=== PATIENT | female | born 1995 | race Hispanic/Latino ===

== ENCOUNTER 2017-05-20 04:50 | Inpatient (IN) | payer OTHER ==
[2017-05-20] MEDS ORDERED: PHENERGAN PO PRN ×2 (05:16→05:57)
[2017-05-20] MEDS ORDERED: BRETHINE IVP PRN (05:16)
[2017-05-20] MEDS ORDERED: ZOFRAN IV PRN ×2 (05:16→05:57)
[2017-05-20] MEDS ORDERED: NARCAN 0.4 MG/1 ML IV PRN (05:16)
[2017-05-20] MEDS ORDERED: STADOL IV PRN (05:16)
[2017-05-20] MEDS ORDERED: ePHEDrine SULFATE IV PRN (05:16)
[2017-05-20] MEDS ORDERED: BRETHINE SUB-Q PRN (05:16)
[2017-05-20] MEDS ORDERED: SUBLIMAZE IV PRN (05:16)
[2017-05-20] MEDS ORDERED: POLYCILLIN/NS 2 GM/100 ML 2 GM/100 ML BAG IV ONE ×2 (05:16→05:24)
[2017-05-20] MEDS ORDERED: XYLOCAINE 2% INFILTRATI ONE (05:16)
[2017-05-20] MEDS ORDERED: MINERAL OIL PO PRN (05:16)
--- NOTE | 2017-05-20 05:19 | History and Physical Report ---
History of Present Illness Date of examination: 05/20/17 Date of admission: 05/20/17 05:01 Chief complaint: Labor History of present illness: Pt is a 22yo WF EDC 05/27/17; EGA 39 0/7 weeks presents to L&D complaining of RUC's q 2-3 mins. She received care at [facility] initially at 18 weeks then returned at 34 weeks. course has been unremarkable, and records are available. GBS is unknown. Past History Past Medical History: no pertinent history Past Surgical History: no surgical history Family/Genetic History: none Social history: no significant social history, - Obstetrical History Expected Date of Delivery: 05/27/17 Actual Gestation: 39 Week(s) 0 Day(s) Medications and Allergies Allergies Allergy/AdvReac Type Severity Reaction Status Date / Time No Known Drug Allergies Allergy Unknown Verified 05/20/17 05:22 Review of Systems All systems: negative - Physical Exam Breasts: Positive: deferred Cardiovascular: Regular rate Lungs: Positive: Clear to auscultation Abdomen: Positive: normal appearance Genitourinary (Female): Positive: normal external genitalia Vagina: Positive: normal moisture Uterus: Positive: enlarged - Obstetrical FHR: category 1 Uterine Contraction Monitor Mode: External Cervical Dilatation: 6 Cervical Effacement Percentage: 80 station: -2 Uterine Contraction Pattern: Regular Uterine Tone Measurement Phase: Contraction Uterine Contraction Intensity: Moderate Results Result Diagrams: 05/20/17 05:15 All other labs normal. Assessment and Plan - Patient Problems (1) 39 weeks gestation of Onset Date: 05/20/17 Current Visit: Yes Status: Acute Plan to address problem: A: IUP @ 39 0/7 weeks in labor Unknown GBS P: Admit to L&D for expectant vaginal delivery IV Ampicillin
--- NOTE | 2017-05-20 05:48 | Procedure Note ---
OB Delivery Note - Delivery Date of Delivery: 05/20/17 Surgeon: PRETTY VÁZQUEZ Estimated blood loss: 100cc - Vaginal Delivery presentation: vertex Delivery position: OA Intrapartum events: precipitous labor- <3hr Delivery induction: none Delivery augmentation: rupture of membranes Delivery monitor: external FHT, external uterine Route of delivery: Delivery placenta: spontaneous Delivery cord: 3 umbilical vessels Episiotomy: none Delivery laceration: 1st degree (left labial) Delivery repair: vicryl Anesthesia: none Delivery comments: delivered OA and placed on Mom's chest for [id number] bonding and delayed cord clamping - A at 1 minute: 8 at 5 minutes: 9 Infant Gender: Female ([id number])
[2017-05-20 05:49] LABS: Hematocrit 39.6 % (30.3-42.9); Hemoglobin 13.6 gm/dl (10.1-14.3); Mean Corpuscular HGB Conc 34 % (30-34); Mean Corpuscular Hemoglobin 30 pg (28-32); Mean Corpuscular Volume 89 fl (79-97); Platelet Count 298 K/mm3 (140-440); Red Blood Count 4.46 M/mm3 (3.65-5.03); Red Cell Distribution Width 14.4 % (13.2-15.2); White Blood Count 10.4 K/mm3 (4.5-11.0)
[2017-05-20] MEDS ORDERED: DULCOLAX PR PRN (05:57)
[2017-05-20] MEDS ORDERED: MILK OF MAGNESIA PO PRN (05:57)
[2017-05-20] MEDS ORDERED: TYLENOL PO PRN (05:57)
[2017-05-20] MEDS ORDERED: BENADRYL PO PRN (05:57)
[2017-05-20] MEDS ORDERED: LANSINOH TP PRN (05:57)
[2017-05-20] MEDS ORDERED: PHENERGAN PR PRN (05:57)
[2017-05-20] MEDS ORDERED: SODIUM CHLORIDE FLUSH SYRINGE 10 ML IV NR (06:00)
[2017-05-20] MEDS ORDERED: LACTATED RINGERS 1,000 ML IV SCH (06:00)
[2017-05-20] MEDS ORDERED: PITOCin/NS 20 UNIT/1000ML DRIP 20 UNITS/1,000 ML BAG IV SCH ×2 (06:00)
[2017-05-20] MEDS ORDERED: PITOCin/NS 30 UNIT/500ML 30 UNITS/500 ML BAG IV SCH (06:00)
[2017-05-20] MEDS: NORCO 5/325 PO PRN ×2 (08:14→21:20)
[2017-05-20] MEDS: TUCKS PAD TP PRN (08:23)
[2017-05-20] MEDS ORDERED: POLYCILLIN/NS 1 GM/50 ML 1 GM/50 ML BAG IV SCH (09:18)
[2017-05-20] MEDS: COLACE PO SCH ×2 (10:32→21:21)
[2017-05-20] MEDS: FEOSOL PO SCH ×2 (10:32→21:21)
[2017-05-20] MEDS: PRENATAL VITAMIN PO SCH (10:32)
[2017-05-20] MEDS: MOTRIN PO SCH ×3 (12:05→23:46)
[2017-05-20 19:45] LABS: Hematocrit 37.3 % (30.3-42.9); Hemoglobin 12.8 gm/dl (10.1-14.3)
[2017-05-21] MEDS ORDERED: M-M-R II VACCINE SUB-Q ONE (05:57)
[2017-05-21] MEDS ORDERED: BOOSTRIX IM ONE (06:00)
[2017-05-21] MEDS: MOTRIN PO SCH ×4 (06:04→23:55)
--- NOTE | 2017-05-21 09:02 | Progress Note ---
Assessment and Plan - Patient Problems (1) 39 weeks gestation of Onset Date: 05/20/17 Current Visit: Yes Status: Resolved (2) (normal spontaneous vaginal delivery) Onset Date: 05/21/17 Current Visit: Yes Status: Resolved Plan to address problem: A: S/P - PPD #1 Doing well P: May go home tomorrow Subjective - Subjective Date of service: 05/21/17 Principal diagnosis: s/p - PPD #1 Interval history: Pt is feeling well without complaints. Bleeding improved. Patient reports: appetite normal, voiding normally, pain well controlled, flatus , ambulating normally : doing well, nursing well Objective - Vital Signs Latest vital signs: Vital Signs Temp Pulse Resp BP BP Pulse Ox 05/21/17 04:20 98.0 F 52 L 18 104/55 05/21/17 00:00 98.2 F 59 L 18 98/42 05/20/17 20:10 98.6 F 61 18 104/50 05/20/17 17:17 97.8 F 59 L 18 105/66 99 Intake and Output 05/20/17 05/21/17 05/21/17 22:59 06:59 14:59 Intake Total 480 240 Balance 480 240 Intake: Oral 480 240 Other: Total, Intake Amount 480 240 # Voids Void 1 1 - Exam Breasts: Present: deferred Cardiovascular: Present: Regular rate Lungs: Present: Clear to auscultation Abdomen: Present: normal appearance Uterus: Present: normal, firm, fundal height below umbilicus Extremities: Present: normal - Labs Labs: Laboratory Tests 05/20/17 05/20/17 05/20/17 05:15 05:15 19:31 WBC 10.4 RBC 4.46 Hgb 13.6 12.8 Hct 39.6 37.3 MCV 89 MCH 30 MCHC 34 RDW 14.4 Plt Count 298 Blood Type B POSITIVE Antibody Screen TNR ALESHIA Antibody Screen Negative
--- NOTE | 2017-05-21 09:05 | Discharge Summary ---
Providers - Providers Date of Admission: 05/20/17 05:01 Date of discharge: 05/22/17 Attending physician: PRETTY VÁZQUEZ Primary care physician: PRETTY VÁZQUEZ Hospitalization Reason for admission: active labor, IUP at term Delivery: Episiotomy: none Laceration: 1st degree Other procedures: none complications: none Discharge diagnosis: IUP at term delivered [place] baby: female Hospital course: Unremarkable Condition at discharge: Good Disposition: DC-01 TO HOME OR SELFCARE - Discharge Diagnoses (1) 39 weeks gestation of Status: Resolved (2) (normal spontaneous vaginal delivery) Status: Resolved Plan - Discharge Medications Prescriptions: Ibuprofen [Motrin 600 MG tab] 600 mg PO Q6H #30 tablet Vit-Fe Fumar-FA [ Vitamin] 1 each PO QDAY #30 tablet - Provider Discharge Summary Activity: routine, no sex for 6 weeks, no heavy lifting 4 weeks, no strenuous exercise Diet: routine Instructions: routine Additional instructions: [] Smoking cessation referral if applicable(refer to patient education folder for contact #) [] Refer to [facility]'s [facility] Booklet Call your doctor immediately for: * Fever > 100.5 * Heavy vaginal bleeding ( >1 pad per hour) * Severe persistent headache * Shortness of breath * Reddened, hot, painful area to leg or breast * Drainage or odor from incision. * Keep incision clean and dry at all times and follow doctor's instructions regarding bathing/showering - Follow up plan Follow up: PRETTY VÁZQUEZ MD [Primary Care Provider] - 6 Weeks
[2017-05-21] MEDS: FEOSOL PO SCH ×2 (09:49→21:43)
[2017-05-21] MEDS: PRENATAL VITAMIN PO SCH (09:49)
[2017-05-21] MEDS: COLACE PO SCH ×2 (09:50→21:44)
[2017-05-21] MEDS: NORCO 5/325 PO PRN (15:44)
[2017-05-22] MEDS: MOTRIN PO SCH ×2 (06:22→12:22)
[2017-05-22] MEDS: FEOSOL PO SCH (10:34)
[2017-05-22] MEDS: PRENATAL VITAMIN PO SCH (10:34)
[2017-05-22] MEDS: TUCKS PAD TP PRN (10:34)
[2017-05-22] MEDS: COLACE PO SCH (10:34)
[2017-05-22] MEDS ORDERED: Fluarix Quad 2017-2018(36 MOS+) IM ONE (12:00)
[2017-05-22 13:41] VITALS: BP 104/86
== END 2017-05-22 13:00 | disposition home or self-care (01) | DRG 775 ==
LOC: TRG 04:50 → LD 05:01 → OB 08:09
PROVIDERS: ADMIT Obstetrics & Gynecology; ATTEND Obstetrics & Gynecology
PROC: 10E0XZZ Delivery of Products of Conception, External Approach (ICD-10-PCS; principal; 2017-05-20)
PROC: 0HQ9XZZ Repair Perineum Skin, External Approach (ICD-10-PCS; 2017-05-20)
PROC: 3E0234Z Introduction of Serum, Toxoid and Vaccine into Muscle, Percutaneous Approach (ICD-10-PCS; 2017-05-21)
DX: O62.3 Precipitate labor (principal); Z3A.39 39 weeks gestation of pregnancy; Z37.0 Single live birth; O70.0 First degree perineal laceration during delivery; Z23 Encounter for immunization
CPT/HCPCS: 36415; 85014; 85018; 85027; 86850; 86900; 86901; 90686; 90707; 99211; A6250; G0463; J0290; J2590; J3010; J7120